=== PATIENT | male | born 1975 | race Caucasian/White ===

== ENCOUNTER 2016-11-29 11:53 | Emergency (ER) | payer BC ==
[~2016-11-29] VITALS: Ht 175.3 cm; Wt 174.6 kg
[2016-11-29 12:21] VITALS: BP 155/102
== END 2016-11-29 14:54 | disposition home or self-care (01) ==
LOC: ED 11:53
DX: S22.41XA Multiple fractures of ribs, right side, initial encounter for closed fracture (principal); I10 Essential (primary) hypertension; E11.9 Type 2 diabetes mellitus without complications; V13.4XXA Pedal cycle driver injured in collision with car, pick-up truck or van in traffic accident, initial encounter; Y93.89 Activity, other specified; Y92.89 Other specified places as the place of occurrence of the external cause; Y99.8 Other external cause status
CPT/HCPCS: J1885

== ENCOUNTER 2017-10-29 21:54 | Emergency (ER) | payer BC ==
[~2017-10-29] VITALS: Ht 175.3 cm; Wt 184.2 kg
[2017-10-29 22:28] VITALS: Ht 175.3 cm; Wt 184.2 kg
[2017-10-30 03:00] VITALS: BP 142/90
[2017-10-31] MEDS ORDERED: AMLODIPINE BESY10 M2 PO (19:22)
[2017-10-31] MEDS ORDERED: METFORMIN HCL1000 MG PO (19:23)
[2017-10-31] MEDS ORDERED: GLUCOTROL10 MG PO (19:23)
[2017-10-31] MEDS ORDERED: LISINOPRIL5 MG PO (19:24)
== END 2017-10-30 03:00 | disposition home or self-care (01) ==
LOC: ED 21:54
DX: R60.1 Generalized edema (principal); E66.9 Obesity, unspecified; K76.0 Fatty (change of) liver, not elsewhere classified; I10 Essential (primary) hypertension; E11.9 Type 2 diabetes mellitus without complications; E78.00 Pure hypercholesterolemia, unspecified; Z68.45 Body mass index [BMI] 70 or greater, adult
CPT/HCPCS: 82962; J1885

== ENCOUNTER 2017-10-31 12:03 | Inpatient (IN) | payer BC ==
[~2017-10-31] VITALS: Ht 175.3 cm; Wt 173.4 kg
[2017-10-31 13:09] LABS: microscopic required? NO
[2017-10-31 13:10] LABS: BASOPHIL % 2.1 % (0-2); PLATELET COUNT 159 x10^3mcL (130-400); RED CELL DISTRIBUTION WIDTH 14.2 % (11.5-14.5)
[2017-10-31 13:22] LABS: CALCIUM 8.6 mg/dL (8.5-10.1); CARBON DIOXIDE 29.5 mmol/L (21-32); CREATININE SERUM 1.8 mg/dL (0.7-1.3); POTASSIUM SERUM 3.9 mmol/L (3.5-5.1)
[2017-10-31 13:27] LABS: ALBUMIN 3.3 g/dL (3.4-5.0); BILIRUBIN TOTAL 0.7 mg/dL (0.20-1.00); TOTAL PROTEIN, SERUM 7.1 g/dL (6.4-8.2)
[2017-10-31 13:54] LABS: UA SPECIFIC GRAVITY <=1.005 (1.005-1.035); urine erythrocyte NEGATIVE (NEGATIVE)
[2017-10-31 17:06] LABS: MAGNESIUM 1.5 mg/dL (1.8-2.4); PHOSPHOROUS 3.9 mg/dL (2.5-4.9)
[2017-10-31 17:16] LABS: FREE T4 1.22 ng/dL (0.76-1.46); FREE THYROXINE INDEX 2.6 ug/dL (1.4-4.5); T3 TOTAL 0.91 ng/mL; T4(THYROXINE) 7.1 ug/dL (4.7-13.3)
[2017-10-31 17:18] LABS: AMPHETAMINE QUAL UR POSITIVE (NEG <=1000)
[2017-10-31 17:26] VITALS: BP 147/89
[2017-10-31] MEDS ORDERED: AMLODIPINE BESY10 M2 PO (19:22)
[2017-10-31] MEDS ORDERED: GLUCOTROL10 MG PO (19:23)
[2017-10-31] MEDS ORDERED: METFORMIN HCL1000 MG PO (19:23)
[2017-10-31] MEDS ORDERED: LISINOPRIL5 MG PO (19:24)
[2017-10-31 19:51] VITALS: BP 147/89
[2017-10-31 21:48] VITALS: BP 163/84
[2017-11-01 05:17] VITALS: BP 152/98
[2017-11-01 06:43] LABS: BASOPHIL % 0.4 % (0-2); PLATELET COUNT 151 x10^3mcL (130-400); RED CELL DISTRIBUTION WIDTH 14.4 % (11.5-14.5)
[2017-11-01 07:40] LABS: CALCIUM 9.1 mg/dL (8.5-10.1); CARBON DIOXIDE 27.9 mmol/L (21-32); CREATININE SERUM 2.3 mg/dL (0.7-1.3); MAGNESIUM 2.1 mg/dL (1.8-2.4); POTASSIUM SERUM 3.8 mmol/L (3.5-5.1)
[2017-11-01 08:03] VITALS: Ht 175.3 cm; Wt 173.4 kg
[2017-11-01 09:31] VITALS: BP 167/105
[2017-11-01 13:29] VITALS: BP 149/99
[2017-11-01 17:39] VITALS: BP 153/91
[2017-11-01 17:40] VITALS: BP 91/56
[2017-11-01 20:56] VITALS: BP 118/67
[2017-11-02 05:00] VITALS: BP 137/96
[2017-11-02 06:28] LABS: BASOPHIL % 0.4 % (0-2); PLATELET COUNT 165 x10^3mcL (130-400)
[2017-11-02 06:44] LABS: RED CELL DISTRIBUTION WIDTH 14.6 % (11.5-14.5)
[2017-11-02 06:46] LABS: CALCIUM 8.7 mg/dL (8.5-10.1); CARBON DIOXIDE 28.1 mmol/L (21-32); CREATININE SERUM 2.8 mg/dL (0.7-1.3); POTASSIUM SERUM 4.1 mmol/L (3.5-5.1)
[2017-11-02 09:39] VITALS: BP 155/94
[2017-11-02 14:36] VITALS: BP 158/110
[2017-11-02 17:52] VITALS: BP 137/102
[2017-11-02 20:29] VITALS: BP 124/64
[2017-11-03 05:54] VITALS: BP 138/76
[2017-11-03 05:59] LABS: BASOPHIL % 0.4 % (0-2); PLATELET COUNT 172 x10^3mcL (130-400); RED CELL DISTRIBUTION WIDTH 14.4 % (11.5-14.5)
[2017-11-03 07:44] LABS: CALCIUM 8.4 mg/dL (8.5-10.1); CREATININE SERUM 2.7 mg/dL (0.7-1.3); POTASSIUM SERUM 3.9 mmol/L (3.5-5.1)
[2017-11-03 08:55] VITALS: BP 150/105
[2017-11-03 09:31] VITALS: BP 135/87
[2017-11-03 09:46] VITALS: BP 135/87
[2017-11-03] MEDS ORDERED: ECO81 PO (10:22)
[2017-11-03] MEDS ORDERED: COR3 PO (10:22)
[2017-11-03] MEDS ORDERED: LIPI10 PO (10:22)
[2017-11-03] MEDS ORDERED: APR10 PO (10:22)
[2017-11-03] MEDS ORDERED: COUMADIN5 MG PO (10:37)
[2017-11-03] MEDS ORDERED: GLUCOTROL5 MG PO (10:37)
[2017-11-03] MEDS ORDERED: VENTOLIN H0.09 MG/A1 INH (10:48)
== END 2017-11-03 12:54 | disposition home or self-care (01) | DRG 193 ==
LOC: ED 12:03 → DU 15:00
PROVIDERS: Emergency Medicine; Family Medicine
DX: J18.9 Pneumonia, unspecified organism (principal); N17.0 Acute kidney failure with tubular necrosis; E44.0 Moderate protein-calorie malnutrition; N13.30 Unspecified hydronephrosis; Z68.43 Body mass index [BMI] 50.0-59.9, adult; I13.0 Hypertensive heart and chronic kidney disease with heart failure and stage 1 through stage 4 chronic kidney disease, or unspecified chronic kidney disease; E78.00 Pure hypercholesterolemia, unspecified; I50.9 Heart failure, unspecified; I48.91 Unspecified atrial fibrillation; E87.70 Fluid overload, unspecified; E11.65 Type 2 diabetes mellitus with hyperglycemia; E83.42 Hypomagnesemia; G47.33 Obstructive sleep apnea (adult) (pediatric); E66.01 Morbid (severe) obesity due to excess calories; Z82.49 Family history of ischemic heart disease and other diseases of the circulatory system; E11.22 Type 2 diabetes mellitus with diabetic chronic kidney disease; N18.9 Chronic kidney disease, unspecified; I16.0 Hypertensive urgency; R16.0 Hepatomegaly, not elsewhere classified
CPT/HCPCS: 36600; 82962; 83880; 84439; J1200; J1642; J1644; J1940; J1956; J3475; J3490; J7030; J7050; J7620; Q0092; Q9967

== ENCOUNTER 2018-03-18 18:01 | Inpatient (IN) | payer BC ==
[~2018-03-18] VITALS: Ht 175.3 cm; Wt 153.6 kg
[~2018-03-18 18:01] MED LIST: AMLODIPINE BESY10 M2 PO; APR10 PO; COR3 PO; COUMADIN5 MG PO; ECO81 PO; GLUCOTROL10 MG PO; GLUCOTROL5 MG PO; LIPI10 PO; LISINOPRIL5 MG PO; METFORMIN HCL1000 MG PO; VENTOLIN H0.09 MG/A1 INH
[2018-03-18 18:06] VITALS: Ht 175.3 cm; Wt 153.6 kg
[2018-03-18 19:50] LABS: BASOPHIL % 0.4 % (0-2); PLATELET COUNT 345 x10^3mcL (130-400)
[2018-03-18 19:59] LABS: RED CELL DISTRIBUTION WIDTH 17.5 % (11.5-14.5)
[2018-03-18 20:05] LABS: BILIRUBIN TOTAL 0.4 mg/dL (0.20-1.00); CALCIUM 7.8 mg/dL (8.5-10.1); POTASSIUM SERUM 4.2 mmol/L (3.5-5.1); TOTAL PROTEIN, SERUM 7.7 g/dL (6.4-8.2)
[2018-03-18 20:10] LABS: ALBUMIN 1.9 g/dL (3.4-5.0)
[2018-03-18 21:25] LABS: UA SPECIFIC GRAVITY <=1.005 (1.005-1.035); microscopic required? YES; urine erythrocyte NEGATIVE (NEGATIVE)
[2018-03-18] MEDS ORDERED: AMLODIPINE VALS PO (21:56)
[2018-03-18] MEDS ORDERED: LIPI10 PO (21:57)
[2018-03-18] MEDS ORDERED: GLUCOTROL10 MG PO (21:57)
[2018-03-18] MEDS ORDERED: CARVEDILOL3.125 M1 PO (21:57)
[2018-03-18] MEDS ORDERED: CIPRO500 MG PO (21:58)
[2018-03-18] MEDS ORDERED: HYDRALAZINE HCL25 MG PO (21:58)
[2018-03-18] MEDS ORDERED: GOOD SENSE ASPI81 M3 PO (21:58)
[2018-03-18] MEDS ORDERED: JANUVIA100 M1 (21:59)
[2018-03-18] MEDS ORDERED: COUMADIN5 MG PO (21:59)
[2018-03-18] MEDS ORDERED: ALDACTONE25 MG PO (21:59)
[2018-03-18 22:43] VITALS: BP 134/83
[2018-03-18 23:01] LABS: MAGNESIUM 1.5 mg/dL (1.8-2.4); PHOSPHOROUS 2.2 mg/dL (2.5-4.9)
[2018-03-18 23:07] LABS: CHOLESTEROL/HDL RATIO 5.5; T3 TOTAL 0.68 ng/mL
[2018-03-18 23:40] LABS: FREE T4 1.48 ng/dL (0.76-1.46); FREE THYROXINE INDEX 2.3 ug/dL (1.4-4.5); T4(THYROXINE) 5.9 ug/dL (4.7-13.3)
[2018-03-19 05:52] VITALS: BP 128/82
[2018-03-19 06:35] LABS: BASOPHIL % 0.3 % (0-2); PLATELET COUNT 295 x10^3mcL (130-400)
[2018-03-19 07:02] LABS: CALCIUM 8.4 mg/dL (8.5-10.1); CARBON DIOXIDE 25.1 mmol/L (21-32); CREATININE SERUM 1.9 mg/dL (0.7-1.3); MAGNESIUM 1.5 mg/dL (1.8-2.4); PHOSPHOROUS 2.6 mg/dL (2.5-4.9)
[2018-03-19 07:13] LABS: RED CELL DISTRIBUTION WIDTH 17.1 % (11.5-14.5)
[2018-03-19 09:00] VITALS: BP 119/80
[2018-03-19 13:09] VITALS: BP 106/68
[2018-03-19 13:20] VITALS: BP 126/74
[2018-03-19 17:31] VITALS: BP 116/73
[2018-03-19 20:25] VITALS: BP 125/81
[2018-03-20 06:27] LABS: BASOPHIL % 0.3 % (0-2); PLATELET COUNT 276 x10^3mcL (130-400)
[2018-03-20 06:30] VITALS: BP 117/81
[2018-03-20 06:34] LABS: RED CELL DISTRIBUTION WIDTH 17.2 % (11.5-14.5)
[2018-03-20 06:35] LABS: CALCIUM 7.4 mg/dL (8.5-10.1); CARBON DIOXIDE 26.2 mmol/L (21-32); CREATININE SERUM 1.6 mg/dL (0.7-1.3); MAGNESIUM 1.6 mg/dL (1.8-2.4); PHOSPHOROUS 2.7 mg/dL (2.5-4.9)
[2018-03-20 10:49] VITALS: BP 137/89
[2018-03-20 12:42] VITALS: BP 104/57
[2018-03-20 17:41] VITALS: BP 120/58
[2018-03-20 20:32] VITALS: BP 110/62
[2018-03-21] VITALS (8 sets, daily range): BP systolic 114–122; BP diastolic 55–89
[2018-03-21 07:33] LABS: BASOPHIL % 0.4 % (0-2); PLATELET COUNT 261 x10^3mcL (130-400)
[2018-03-21 07:34] LABS: RED CELL DISTRIBUTION WIDTH 17.4 % (11.5-14.5)
[2018-03-21 07:44] LABS: CALCIUM 8.5 mg/dL (8.5-10.1); CARBON DIOXIDE 25.4 mmol/L (21-32); CREATININE SERUM 1.7 mg/dL (0.7-1.3); MAGNESIUM 1.5 mg/dL (1.8-2.4); PHOSPHOROUS 2.8 mg/dL (2.5-4.9); POTASSIUM SERUM 4.2 mmol/L (3.5-5.1)
[2018-03-22 04:30] VITALS: BP 105/71
[2018-03-22 07:20] LABS: CALCIUM 7.9 mg/dL (8.5-10.1); CARBON DIOXIDE 29.7 mmol/L (21-32); CREATININE SERUM 1.4 mg/dL (0.7-1.3); MAGNESIUM 1.7 mg/dL (1.8-2.4); PHOSPHOROUS 3.4 mg/dL (2.5-4.9)
[2018-03-22 07:21] LABS: BASOPHIL % 0.7 % (0-2); PLATELET COUNT 298 x10^3mcL (130-400)
[2018-03-22 07:26] LABS: RED CELL DISTRIBUTION WIDTH 17.1 % (11.5-14.5)
[2018-03-22 08:53] VITALS: BP 118/85
[2018-03-22 13:02] VITALS: BP 120/77
[2018-03-22] MEDS ORDERED: LEVAQUIN750 MG PO (15:10)
[2018-03-22 16:10] VITALS: BP 120/77
== END 2018-03-22 17:00 | disposition home or self-care (01) | DRG 871 ==
LOC: ED 18:01 → DU 21:43 → MU 21:43 → DU 22:57
PROVIDERS: Emergency Medicine; Internal Medicine
PROC: 5A09357 Assistance with Respiratory Ventilation, Less than 24 Consecutive Hours, Continuous Positive Airway Pressure (ICD-10-PCS; principal; 2018-03-19)
PROC: 5A09357 Assistance with Respiratory Ventilation, Less than 24 Consecutive Hours, Continuous Positive Airway Pressure (ICD-10-PCS; 2018-03-20)
PROC: 5A09357 Assistance with Respiratory Ventilation, Less than 24 Consecutive Hours, Continuous Positive Airway Pressure (ICD-10-PCS; 2018-03-21)
PROC: 30233L1 Transfusion of Nonautologous Fresh Plasma into Peripheral Vein, Percutaneous Approach (ICD-10-PCS; 2018-03-21)
PROC: 30233K1 Transfusion of Nonautologous Frozen Plasma into Peripheral Vein, Percutaneous Approach (ICD-10-PCS; 2018-03-21)
PROC: 0T9130Z Drainage of Left Kidney with Drainage Device, Percutaneous Approach (ICD-10-PCS; 2018-03-21)
PROC: 0T9030Z Drainage of Right Kidney with Drainage Device, Percutaneous Approach (ICD-10-PCS; 2018-03-21)
DX: A41.9 Sepsis, unspecified organism (principal); E11.00 Type 2 diabetes mellitus with hyperosmolarity without nonketotic hyperglycemic-hyperosmolar coma (NKHHC); E43 Unspecified severe protein-calorie malnutrition; N17.0 Acute kidney failure with tubular necrosis; N15.1 Renal and perinephric abscess; E87.1 Hypo-osmolality and hyponatremia; Z68.42 Body mass index [BMI] 45.0-49.9, adult; I31.3 Pericardial effusion (noninflammatory); N13.6 Pyonephrosis; E78.00 Pure hypercholesterolemia, unspecified; R65.20 Severe sepsis without septic shock; E83.42 Hypomagnesemia; I48.2 Chronic atrial fibrillation; G47.33 Obstructive sleep apnea (adult) (pediatric); E86.0 Dehydration; N18.9 Chronic kidney disease, unspecified; E11.22 Type 2 diabetes mellitus with diabetic chronic kidney disease; I12.9 Hypertensive chronic kidney disease with stage 1 through stage 4 chronic kidney disease, or unspecified chronic kidney disease; D64.9 Anemia, unspecified; E66.01 Morbid (severe) obesity due to excess calories; Z79.01 Long term (current) use of anticoagulants; Z79.82 Long term (current) use of aspirin; Z51.81 Encounter for therapeutic drug level monitoring
CPT/HCPCS: 32557; 83880; 84439; J0696; J1815; J2001; J2060; J2270; J2405; J2543; J7030; J7042; J7050; P9059; Q0092; Q0163

== ENCOUNTER 2018-04-13 14:27 | Emergency (ER) | payer BC ==
[~2018-04-13] VITALS: Ht 175.3 cm; Wt 147.0 kg
[~2018-04-13 14:27] MED LIST changes: +ALDACTONE25 MG PO; +AMLODIPINE VALS PO; +CARVEDILOL3.125 M1 PO; +CIPRO500 MG PO; +GOOD SENSE ASPI81 M3 PO; +HYDRALAZINE HCL25 MG PO; +JANUVIA100 M1; +LEVAQUIN750 MG PO
[2018-04-13 14:45] VITALS: BP 162/106; Ht 175.3 cm; Wt 147.0 kg
== END 2018-04-13 15:38 | disposition home or self-care (01) ==
LOC: ED 14:27
DX: Z43.6 Encounter for attention to other artificial openings of urinary tract (principal); N15.1 Renal and perinephric abscess; I10 Essential (primary) hypertension; E11.9 Type 2 diabetes mellitus without complications; E78.00 Pure hypercholesterolemia, unspecified
CPT/HCPCS: 50435